=== PATIENT | male | born 1985 | race Caucasian/White ===

== ENCOUNTER → 2016-07-29 | Outpatient (CLI) | payer OTHER ==
[~2016-07-29] MED LIST: ACTUDL10 PO; CLR10 PO; IBUP-1050 PO
[2016-07-29 16:55] LABS: ALT/SGPT 40 U/L (12-78); AST/SGOT 40 U/L (15-37); BLOOD UREA NITROGEN 20 mg/dl (7-18); BUN/CREATININE RATIO 20.2 (10-20); CALCIUM 8.7 mg/dl (8.5-10.1); CARBON DIOXIDE 27 mmol/L (21-32); CHLORIDE 104 mmol/L (98-107); CREATININE 0.97 mg/dl (0.60-1.40); GLUCOSE 75 mg/dl (70-99); SODIUM 140 mmol/L (136-145)
[2016-07-29 17:03] LABS: ALB/GLOB RATIO 1.2 (0.9-2); ALKALINE PHOSPHATASE 79 U/L (45-117); CHOLESTEROL 162 mg/dl (0-200); CHOLESTEROL/HDL RATIO 2.9; HDL CHOLESTEROL 56 mg/dl; LDL CHOLESTEROL CALCULATED 87 mg/dl; TRIGLYCERIDES 96 mg/dl (0-150); VERY LOW DENSITY LIPOPROT CALC 19 mg/dl
== END | disposition home or self-care (01) ==
LOC: C.LAB1850 15:39
PROVIDERS: ATTEND Internal Medicine
DX: R20.0 Anesthesia of skin (principal); E55.9 Vitamin D deficiency, unspecified; Z13.220 Encounter for screening for lipoid disorders; Z13.29 Encounter for screening for other suspected endocrine disorder; Z13.1 Encounter for screening for diabetes mellitus

== ENCOUNTER 2017-03-07 12:39 | Emergency (ER) | payer OTHER ==
[~2017-03-07] VITALS: Ht 188 cm; Wt 108.0 kg
[2017-03-07 12:42] VITALS: TEMP 36.7; Ht 188 cm; Wt 108.0 kg
--- NOTE | 2017-03-07 13:09 | EMERGENCY ROOM VISIT NOTE ---
ED Visit Note First contact with patient: 12:56 I have seen and examined this pt with Tala Lira and agree with the treatment plan Current/Historical Medications Scheduled Acetaminophen 320 Mg/10 Ml (Tylenol 320 MG/10 ML), 1 DOSE PO DIRECTED Loratadine (Claritin), 10 MG PO X1 Scheduled PRN Ibuprofen (Advil), 600 MG PO TID PRN for Pain Allergies Coded Allergies: No Known Allergies (Unverified , 06/22/13) PER H&P Vital Signs Date Time Temp Pulse Resp B/P (MAP) Pulse Ox O2 Delivery O2 Flow Rate FiO2 03/07/17 12:42 36.7 61 20 130/78 97 Room Air Departure Information Referrals RV. Lawrence MD (PCP) Patient Instructions My [facility]
--- NOTE | 2017-03-07 13:18 | DIAGNOSTIC IMAGING REPORT ---
RIGHT ANKLE MIN 3 VIEWS ROUTINE CLINICAL HISTORY: Right ankle pain following injury. COMPARISON: None FINDINGS: Alignment of the right ankle is anatomic. Talar dome is intact. There is no acute fracture. A possible 1.8 cm accessory ossicle projects over the anterior process of the calcaneus on lateral projection. IMPRESSION: 1. No acute fracture or dislocation of the right ankle. 2. 1.8 cm suspected accessory ossicle which projects over the anterior process of the calcaneus on the lateral projection. A fracture is considered less likely. If persistent pain, right foot radiographs could be obtained although the findings are likely congenital. Electronically signed by: Dax Mart M.D. 03/07/2017 1:16 PM Dictated Date/Time: 03/07/2017 1:13 PM
--- NOTE | 2017-03-07 13:41 | EMERGENCY ROOM VISIT NOTE ---
ED Visit Note First contact with patient: 12:56 CHIEF COMPLAINT: Ankle pain HISTORY OF PRESENT ILLNESS: This 32-year-old male patient presents to the emergency department ambulatory after sustaining an injury to the right ankle and foot with a twisting, inversion motion yesterday evening. The patient states that he stepped into a hole, twisting his ankle and fell. The patient complains of pain along the outside of the ankle. The patient denies pain of the foot. The patient rates the pain as dull and 7/10. The patient is able to bear weight on the foot. Constant pain, worse with movement, weight bearing, and the dependent position. No knee pain, the patient is able to move their toes. No numbness or weakness of the foot, no laceration. The patient has had a previous fracture to this ankle approximately 15 years ago. The patient has taken no medication for the pain. The patient denies any other injury. REVIEW OF SYSTEMS: A 6 system review of systems was completed with positives and pertinent negatives listed in the HPI. ALLERGIES: No known drug allergies MEDICATIONS: No chronic medications PMH: No significant past medical history. SOCIAL HISTORY: The patient lives locally with family. Nonsmoker. PHYSICAL EXAM: Vital Signs: Reviewed Nurse's notes, vital signs stable. GENERAL : This is a 32-year-old male, no acute distress, but appears in pain, well- developed, well-nourished. MENTAL STATUS: Alert, oriented to person place and time, and cooperative. MUSCULOSKELETAL: No deformity of the right ankle. There is tenderness over the anterior aspect of the ankle. There is no ligamentous instability. There is no fifth metatarsal tenderness. There is no tenderness over the rest of the foot. There is no calf or tibia/fibular tenderness. There is no visual deformity. The foot and toes are warm and well- perfused. Dorsalis pedis pulse 2+. Sensation to pain and light touch is intact. Capillary refill less than 2 seconds. RADIOGRAPHIC FINDINGS: RIGHT ANKLE MIN 3 VIEWS ROUTINE FINDINGS: Alignment of the right ankle is anatomic. Talar dome is intact. There is no acute fracture. A possible 1.8 cm accessory ossicle projects over the anterior process of the calcaneus on lateral projection. IMPRESSION: 1. No acute fracture or dislocation of the right ankle. 2. 1.8 cm suspected accessory ossicle which projects over the anterior process of the calcaneus on the lateral projection. A fracture is considered less likely. If persistent pain, right foot radiographs could be obtained although the findings are likely congenital. EMERGENCY DEPARTMENT COURSE: I examined the patient. X-rays of the right ankle were reviewed by myself and read by radiology and reveal a suspected accessory ossicle foot, but no acute fractures or dislocations. Gel ankle splint was applied to the ankle under my direction and the position was satisfactory. Neurovascular status was rechecked and intact. The patient was instructed on the use of crutches. The patient was discharged home in good condition. Blood Pressure Screening: Patient was found to have a slightly elevated blood pressure due to circumstances. I do not believe that the patient requires hypertension monitoring. Medication reconciliation: I attest that I have personally reviewed the patient 's current medication list. The patient was independently evaluated by Dr. Mayo, ED attending physician , who agreed with my assessment and treatment plan. DIAGNOSIS: Right ankle injury Current/Historical Medications Scheduled PRN Ibuprofen (Advil), 600 MG PO TID PRN for Pain Allergies Coded Allergies: No Known Allergies (Unverified , 06/22/13) PER H&P Vital Signs Date Time Temp Pulse Resp B/P (MAP) Pulse Ox O2 Delivery O2 Flow Rate FiO2 03/07/17 13:56 76 20 137/75 100 03/07/17 12:42 36.7 61 20 130/78 97 Room Air Departure Information Impression Primary Impression: Right ankle injury Dispostion Home / Self-Care Condition GOOD Referrals RV. Lawrence MD (PCP) Patient Instructions My [facility] Additional Instructions You have been treated in the Emergency Department for an Ankle sprain. For pain control, you can use the following [id number] medicines (if >12 yo): - Regular strength (325mg/tab) Tylenol (acetaminophen) 2 tabs every 4-6 hours as needed. Do not exceed 12 tablets in a 24 hour period. Avoid taking more than 4 grams (4000 mg) of Tylenol per day. This includes any other sources of acetaminophen you may take on a regular basis. - Regular strength (200 mg/tab) Advil (ibuprofen) 1-2 tabs every 4-6 hours as needed. Do not exceed a dose of 3200 mg per day. If this is a recent injury (<24 hrs), ice can be applied to the area of pain for the first 3 days to help decrease pain and inflammation. You have been provided the number for an Orthopaedic Surgeon. Contact them to schedule follow-up if you have persistent pain or difficulty walking. Keep the ankle brace/splint in place until cleared by Orthopedics. Use the crutches you have been provided to keep ALL weight off of the ankle until weight bearing is tolerable. Return to the Emergency Department if your current symptoms worsen despite treatment course outlined above, or if you develop any of the following symptoms : intractable pain despite aforementioned treatment course or new onset of numbness or tingling of the foot. Problem Qualifiers Primary Impression: Right ankle injury Encounter type: initial encounter Qualified Codes: S99.911A - Unspecified injury of right ankle, initial encounter
[2017-03-07 13:56] VITALS: BP 137/75; PULSE 76; O2SAT 100
== END 2017-03-07 13:58 | disposition home or self-care (01) ==
LOC: C.EDB 12:41 → C.EDD 13:58
DX: S99.911A Unspecified injury of right ankle, initial encounter (principal); X50.9XXA Other and unspecified overexertion or strenuous movements or postures, initial encounter; Z87.828 Personal history of other (healed) physical injury and trauma

== ENCOUNTER → 2017-07-15 | Outpatient (CLI) | payer OTHER ==
[~2017-07-15] MED LIST changes: -ACTUDL10 PO; -CLR10 PO
--- NOTE | 2017-07-15 10:19 | DIAGNOSTIC IMAGING REPORT ---
R FOOT MIN 3 VIEWS ROUTINE CLINICAL HISTORY: Right foot pain COMPARISON: Right ankle dated 03/07/2017 DISCUSSION: No acute fractures or subluxations are visualized. There are mild arthritic changes at the level of the first metatarsal phalangeal joint. There is an os tibialis externum. IMPRESSION: 1. No acute fractures 2. Mild degenerative changes at the level of the first metatarsal phalangeal joint 3. Os tibialis externum Electronically signed by: Tre Monroy M.D. 07/15/2017 10:18 AM Dictated Date/Time: 07/15/2017 10:16 AM
== END | disposition home or self-care (01) ==
LOC: C.RAD1850 10:02
PROVIDERS: ATTEND Student in an Organized Health Care Education/Training Program
DX: M79.89 Other specified soft tissue disorders (principal); M79.671 Pain in right foot; Q66.81 Congenital vertical talus deformity, right foot

== ENCOUNTER → 2017-09-16 | Outpatient (CLI) | payer OTHER | END | disposition home or self-care (01) | LOC: C.RDSM 16:54 | PROVIDERS: ATTEND Orthopaedic Surgery Sports Medicine | DX: S99.911A Unspecified injury of right ankle, initial encounter (principal); X58.XXXA Exposure to other specified factors, initial encounter ==

== ENCOUNTER → 2017-09-22 | Outpatient (CLI) | payer OTHER | END | disposition home or self-care (01) | LOC: C.RDSM 18:02 | PROVIDERS: ATTEND Orthopaedic Surgery Sports Medicine | DX: M25.511 Pain in right shoulder (principal) ==